=== PATIENT | male | born 1935 | race Caucasian/White ===

== ENCOUNTER 2016-07-14 10:42 | Inpatient (IN) | payer MEDICARE ==
[~2016-07-14 10:42] MED LIST: ACETAMINOPHEN500 M4 PO; ALDACTONE25 M1 PO; ASPIRIN325 M3 PO; CARDIZEM CD120 M1 PO; CARTIA XT180 M1 PO; COREG3.125 M1 PO; COREG6.25 M1 PO; FINASTERIDE5 M2 PO; LANOXIN250 MC2 PO; LASIX20 M1 PO; LOVENOX100 MG/1 M SC; METFORMIN HCL500 M2 PO; PLAVIX75 M1 PO; POTASSIUM CHLO10 ME2 PO; PRINIVIL5 M1 PO; TAMSULOSIN HCL0.4 M1 PO; TRIAMTERENE-HC1 EAC2 PO; VIBRAMYCIN100 M1 PO; WARFARIN SODIUM5 M2 PO
[2016-07-14 15:44] LABS: BASO % 0.2 % (0-2); EOS % 1.3 % (0-7); EOSINOPHIL ABSOLUTE COUNT 0.2 tho/cmm (0.0-0.7); HCT-HEMATOCRIT 41.8 % (36.0-53.5); HGB-HEMOGLOBIN 14.6 gm/dl (13.5-17.0); IMMATURE GRANULOCYTES ABSOLUTE 0.09 tho/cmm (0-0.03); IMMATURE GRANULOCYTES PERCENT 0.7 % (0-0.3); LYMPH % 12.5 % (20-45); LYMPH ABSOLUTE COUNT 1.5 tho/cmm (0.8-4.5); MCHC MEAN CORPUSCULAR HGB CONC 34.9 % (32.0-36.0); MCV (MEAN CELL VOLUME) 88.7 fl (82.0-96.0); MEAN PLATELET VOLUME 10.2 cmc (9.4-12.4); MONO % 9.6 % (0-12); MONOCYTE ABSOLUTE COUNT 1.2 tho/cmm (0.0-1.2); NEUTROPHIL ABSOLUTE COUNT 9.3 tho/cmm (1.6-8.0); NEUTROPHIL-AUTOMATED 9.3 tho/cmm (1.6-8.0); NEUTROPHILS % 75.7 % (40-80); PLATELET COUNT 225 tho/cmm (150-450); RED BLOOD COUNT 4.71 mil/cmm (4.40-5.70); RED CELL DISTRIBUTION WIDTH 13.3 % (12.4-16.4); WHITE BLOOD COUNT 12.3 tho/cmm (4.0-10.0)
[2016-07-14 15:55] LABS: ANION GAP 13 mmol/L (0-20); BLOOD UREA NITROGEN 13 mg/dl (6-24); CALCIUM 9.5 mg/dl (8.5-10.5); CARBON DIOXIDE-VENOUS 27 mmol/L (22-32); CHLORIDE 103 mmol/l (96-110); CREATININE 0.97 mg/dl (0.60-1.30); GLUCOSE 127 mg/dL (70-110); POTASSIUM 3.7 mmol/L (3.7-5.1); SODIUM 139 mmol/L (135-145); eGFR VALUE FOR BLACK 86 mL/Min
[2016-07-16 05:21] LABS: BASO % 0.1 % (0-2); EOS % 1.5 % (0-7); EOSINOPHIL ABSOLUTE COUNT 0.2 tho/cmm (0.0-0.7); HCT-HEMATOCRIT 41.4 % (36.0-53.5); HGB-HEMOGLOBIN 13.8 gm/dl (13.5-17.0); IMMATURE GRANULOCYTES ABSOLUTE 0.06 tho/cmm (0-0.03); IMMATURE GRANULOCYTES PERCENT 0.5 % (0-0.3); INR 1.1 INR (0.9-1.1); LYMPH ABSOLUTE COUNT 1.6 tho/cmm (0.8-4.5); MCHC MEAN CORPUSCULAR HGB CONC 33.3 % (32.0-36.0); MEAN PLATELET VOLUME 10.4 cmc (9.4-12.4); MONOCYTE ABSOLUTE COUNT 1.5 tho/cmm (0.0-1.2); NEUTROPHIL ABSOLUTE COUNT 9.1 tho/cmm (1.6-8.0); NEUTROPHIL-AUTOMATED 9.1 tho/cmm (1.6-8.0); NEUTROPHILS % 72.9 % (40-80); PLATELET COUNT 201 tho/cmm (150-450); PROTHROMBIN TIME 13.2 SECONDS (9.0-13.6); RED CELL DISTRIBUTION WIDTH 13.3 % (12.4-16.4); WHITE BLOOD COUNT 12.5 tho/cmm (4.0-10.0)
[2016-07-16 05:35] LABS: ANION GAP 12 mmol/L (0-20); BLOOD UREA NITROGEN 16 mg/dl (6-24); CALCIUM 9.7 mg/dl (8.5-10.5); CARBON DIOXIDE-VENOUS 32 mmol/L (22-32); CHLORIDE 101 mmol/l (96-110); GLUCOSE 146 mg/dL (70-110); POTASSIUM 4.3 mmol/L (3.7-5.1); SODIUM 141 mmol/L (135-145); eGFR VALUE FOR BLACK 74 mL/Min
--- NOTE | 2016-07-16 14:22 | NUR ---
1246-VIRTUAL NURSE NOTE- PATIENT IN IR. TALKED WITH FAMILY REGARDING CARE AFTER RETURNING FROM PROCEDURE. VERBALIZES NO OTHER QUESTIONS. CHELLY VAZ
[2016-07-16] MEDS ORDERED: STOP HOME MEDICATION (15:10)
== END 2016-07-16 16:17 | DRG 803 ==
LOC: EDMED 10:42 → EMR2 14:52 → 5WD 16:55
PROVIDERS: Hospitalist; Internal Medicine; Radiology Diagnostic Radiology; ADMIT Hospitalist
PROC: 07BC3ZX Excision of Pelvis Lymphatic, Percutaneous Approach, Diagnostic (ICD-10-PCS; principal; 2016-07-16)
DX: D68.32 Hemorrhagic disorder due to extrinsic circulating anticoagulants (principal); T45.525A Adverse effect of antithrombotic drugs, initial encounter; R31.0 Gross hematuria; C77.5 Secondary and unspecified malignant neoplasm of intrapelvic lymph nodes; C78.00 Secondary malignant neoplasm of unspecified lung; I42.9 Cardiomyopathy, unspecified; N13.8 Other obstructive and reflux uropathy; I48.0 Paroxysmal atrial fibrillation; R33.9 Retention of urine, unspecified; Z79.02 Long term (current) use of antithrombotics/antiplatelets; Z86.73 Personal history of transient ischemic attack (TIA), and cerebral infarction without residual deficits; Z86.718 Personal history of other venous thrombosis and embolism; N40.1 Benign prostatic hyperplasia with lower urinary tract symptoms; R63.4 Abnormal weight loss; Z68.33 Body mass index [BMI] 33.0-33.9, adult; Z79.82 Long term (current) use of aspirin; C80.1 Malignant (primary) neoplasm, unspecified; R35.1 Nocturia; E11.9 Type 2 diabetes mellitus without complications; I73.9 Peripheral vascular disease, unspecified
CPT/HCPCS: J2250; J3010; Q9967